=== PATIENT | female | born 1975 | race American Indian/Alaskan Native ===

== ENCOUNTER 2018-06-02 06:09 | Inpatient (IN) | payer MEDICAID ==
[2018-05-29 11:02] LABS: Basophils % (Auto) 0.7 % (0.0-1.8); Eosinophils # (Auto) 0.2 K/mm3 (0.0-0.4); Eosinophils % (Auto) 3.8 % (0.0-4.3); Hematocrit 36.8 % (30.3-42.9); Hemoglobin 12.3 gm/dl (10.1-14.3); Lymphocytes # (Auto) 2.1 K/mm3 (1.2-5.4); Lymphocytes % (Auto) 34.3 % (13.4-35.0); Mean Corpuscular HGB Conc 33 % (30-34); Mean Corpuscular Volume 86 fl (79-97); Monocytes # (Auto) 0.4 K/mm3 (0.0-0.8); Monocytes % (Auto) 5.7 % (0.0-7.3); Platelet Count 277 K/mm3 (140-440); Red Blood Count 4.27 M/mm3 (3.65-5.03); Red Cell Distribution Width 14.6 % (13.2-15.2)
[~2018-06-02 06:09] MED LIST: LACTATED RINGERS 1,000 ML IV SCH; NEURONTIN PO NR; SUBLIMAZE IV PRN; VERSED IV NR
[2018-06-02] MEDS ORDERED: NACL BACTERIOSTATIC INFILTRATI ONE (06:20)
--- NOTE | 2018-06-02 06:33 | Anesthesia Day of Surgery ---
Anesthesia Day of Surgery - Day of Surgery Patient Examined: Yes Patient H&P Reviewed: Yes Patient is NPO: Yes
--- NOTE | 2018-06-02 06:33 | Anesthesia Consultation ---
Anesthesia Consult and Med Hx Date of service: 06/02/18 - Airway Anesthetic Teeth Evaluation: Good ROM Head & Neck: Adequate Mental/Hyoid Distance: Adequate Mallampati Class: Class I Intubation Access Assessment: Good - Pulmonary Exam CTA: Yes - Cardiac Exam Cardiac Exam: RRR - Pre-Operative Health Status ASA Pre-Surgery Classification: ASA1 Proposed Anesthetic Plan: General Nerve Block: TAP - Pulmonary Hx Respiratory Symptoms: No - Central Nervous System Hx Psychiatric Problems: No - Gastrointestinal Hx Gastroesophageal Reflux Disease: No - Endocrine Hx Insulin Dependent Diabetes: No Hx Non-Insulin Dependent Diabetes: No Hx Thyroid Disease: No - Other Systems Hx Alcohol Use: Yes (occas) Hx Cancer: No - Additional Comments Anesthesia Medical History Comments: Left upper lateral incisor is an implant
[2018-06-02] MEDS ORDERED: ACD-A 500 ML IV ONE (07:13)
[2018-06-02] MEDS ORDERED: NACL 0.9% 100 ML ONE (07:13)
[2018-06-02] MEDS ORDERED: DILAUDID ONE (07:13)
[2018-06-02] MEDS ORDERED: DIPRIVAN 10 MG/ML IV ONE (07:13)
[2018-06-02] MEDS ORDERED: METHYLENE BLUE ONE (07:13)
[2018-06-02] MEDS ORDERED: XYLOCAINE MPF 2% ONE (07:13)
[2018-06-02] MEDS ORDERED: ZEMURON IV ONE (07:13)
[2018-06-02] MEDS ORDERED: Vasostrict ONE (07:13)
--- NOTE | 2018-06-02 07:28 | History and Physical Report ---
History of Present Illness Date of examination: 06/02/18 Date of admission: 06/02/18 06:09 Chief complaint: Symptomatic uterine fibroids History of present illness: Pt is a 42yo BF LMP 05/23/18 presents for surgical evaluation and treatment of uterine fibroids. Pelvic u/s showed an enlarged uterus with a large pedunculated fibroid. She desires future fertility, and is therefore scheduled for an Abdominal Myomectomy. Past History Past Medical History: no pertinent history Past Surgical History: other (Laparoscopy; Tubal ligation followed by tubal reanastomosis) [employer] History: fibroids Family/Genetic History: none Social history: no significant social history, single Medications and Allergies Allergies Allergy/AdvReac Type Severity Reaction Status Date / Time codeine Allergy Itching Verified 05/28/18 15:33 Home Medications Medication Instructions Recorded Confirmed Last Taken Type Doxylamine Succinate [Unisom] 25 mg PO HS PRN 02/11/18 05/28/18 02/16/18 History HYDROcodone/APAP 5-325 [Ophiem 1 each PO Q6HR PRN #20 tablet 02/17/18 05/28/18 Unknown Rx 5/325] Active Meds: Active Medications Celecoxib (Celebrex) 200 mg PO PREOP NR Stop: 06/02/18 23:59 Last Admin: 06/02/18 06:40 Dose: 200 mg Documented by: Fentanyl (Sublimaze) 100 mcg IV ONCE PRN PRN Reason: procedural sedation Stop: 06/02/18 23:59 Gabapentin (Neurontin) 300 mg PO PREOP NR Stop: 06/02/18 23:59 Last Admin: 06/02/18 06:40 Dose: 300 mg Documented by: Lactated Ringer's (Lactated Ringers) 1,000 mls @ 100 mls/hr IV DIRECT VISHAL Last Admin: 06/02/18 06:50 Dose: 100 mls/hr Documented by: Midazolam HCl (Versed) 2 mg IV PREOP NR Stop: 06/02/18 23:59 Review of Systems All systems: negative - Vital Signs Vital signs: Vital Signs Temp Pulse Resp BP Pulse Ox 98.2 F 78 20 108/76 100 05/29/18 10:40 05/29/18 10:40 05/29/18 10:40 05/29/18 10:40 05/29/18 10:40 Temp Pulse Resp BP Pulse Ox 98 F 75 16 120/85 99 06/02/18 06:20 06/02/18 06:20 06/02/18 06:20 06/02/18 06:20 06/02/18 06:20 - Physical Exam Breasts: Positive: deferred Cardiovascular: Regular rate Lungs: Positive: Clear to auscultation Abdomen: Positive: normal appearance Genitourinary (Female): Positive: normal external genitalia Vagina: Positive: normal moisture Uterus: Positive: enlarged Extremities: Positive: normal Results Result Diagrams: 05/29/18 10:50 All other labs normal. Ultrasound: report reviewed Assessment and Plan - Patient Problems (1) Pedunculated leiomyoma of uterus Onset Date: 06/02/18 Current Visit: No Status: Chronic Qualifiers: Uterine leiomyoma location: intramural and subserous Qualified Code(s): D25.1 - Intramural leiomyoma of uterus; D25.2 - Subserosal leiomyoma of uterus Plan to address problem: A: Symptomatic uterine fibroids Endometriosis P: Admit for an Abdominal myomectomy (2) Endometriosis determined by laparoscopy Onset Date: ~02/17/18 Current Visit: No Status: Resolved
[2018-06-02] MEDS ORDERED: ANCEF/STERILE WATER 2 GM/20 ML 2 GM/20 ML SYRINGE IV NR (08:00)
[2018-06-02] MEDS ORDERED: Vasostrict IM ONE (08:52)
[2018-06-02] MEDS ORDERED: ACD-A IV ONE (08:52)
[2018-06-02] MEDS ORDERED: NACL 0.9% IR ONE (08:52)
[2018-06-02] MEDS ORDERED: ROBINUL ONE (09:08)
[2018-06-02] MEDS ORDERED: BLOXIVERZ ONE (09:08)
[2018-06-02] MEDS ORDERED: TORADOL ONE (09:08)
[2018-06-02] MEDS ORDERED: ZOFRAN ONE (09:08)
[2018-06-02] MEDS ORDERED: MILK OF MAGNESIA PO PRN (09:29)
[2018-06-02] MEDS ORDERED: BENADRYL IV PRN (09:29)
[2018-06-02] MEDS ORDERED: TYLENOL PO PRN (09:29)
[2018-06-02] MEDS: DILAUDID IV PRN ×4 (09:50→10:35)
[2018-06-02] MEDS ORDERED: MORPHINE PCA 30MG/30ML IV SCH (10:00)
[2018-06-02] MEDS ORDERED: NACL 0.9% 1000 ML 1,000 ML IV SCH (10:00)
--- NOTE | 2018-06-02 10:16 | Operative Report ---
Operative Report Operative Report: Date of procedure: 06/02/2018 Pre-operative diagnosis: Symptomatic uterine fibroids Post-operative diagnosis: Same Procedure name(s): Abdominal myomectomy Surgeon: Bran Carrero MD Radio Broadcaster: None Anesthesia: Gen. endotracheal intubation by Dr. Hess EBL: 300 mls with one units returned by Cell Saver Findings: A 14 week size multiple myomatous uterus with normal tubes and ovaries bilaterally Procedure: After the patient was correctly identified, she was prepped and draped in the usual sterile fashion and placed in the dorsolithotomy position. First the skin knife was used to make a transverse skin incision. The incision was extended down to the fascia which is nicked in midline and extended l aterally using Bovie cautery. The rectus muscles were dissected off the rectus fascia both superiorly and inferiorly, the rectus bellies in midline and the peritoneum was entered under direct visualization. Exploration of the pelvic organs found the uterus to be enlarged with multiple fibroids. There was a large pedunculated fibroid in the right lower anterior portion of the uterus, with several smaller scattered fibroids. First Pitressin solution was used to infiltrate the base of the myomas, and each myoma was removed using both sharp and blunt dissection. A total of 10 fibroids removed in this similar fashion. After all the fibroids were removed, the myometrial defect was re-approximated using 2-0 Monocryl suture in a [id number] configuration, followed by re-approximation of the serosal layer using 2-0 Monocryl suture in a running interlocking fashion. After all the fibroids removed the procedure was considered complete. Copious amounts of irrigation was performed, and good hemostasis was assured. The Tisseel sealant was sprayed across the serosal layer. The uterus was then returned to his normal anatomical position, and the peritoneum was re-approximated using 0 Vicryl suture in a running interlocking fashion. The fascia was then re-approximated using 0 Vicryl suture in a running interlocking fashion. The subcutaneous layer was made hemostatic using Bovie cautery and the skin edges re-approximated using 0 Monocryl suture in a sub- cuticular fashion. The patient tolerated the procedure well and was transferred to recovery room in stable condition.
[2018-06-02] MEDS ORDERED: NARCAN 0.4 MG/1 ML IV PRN (10:30)
[2018-06-02] MEDS ORDERED: PERCOCET 5/325 PO PRN (10:30)
--- NOTE | 2018-06-02 10:54 | Post Anesthesia Evaluation ---
- Post Anesthesia Evaluation Patient Participated: Yes Airway Patent: Yes Stable Respiratory Function: Yes Nausea/Vomiting: No Temp > 96.8F: Yes Pain Manageable: Yes Adequeate Hydration: Yes Anesthesia Complications: No
[2018-06-02] MEDS: TORADOL IV SCH ×2 (15:45→22:18)
[2018-06-02] MEDS: D5LR 1,000 ML IV SCH (15:46)
[2018-06-02] MEDS: ZOFRAN IV PRN (16:14)
[2018-06-02] MEDS: ANCEF/NS 1 GM/50 ML 1 GM/50 ML BAG IV SCH (16:14)
[2018-06-02] MEDS: COLACE PO SCH (22:17)
[2018-06-02] MEDS: AMBIEN PO PRN (22:17)
[2018-06-03] MEDS: ANCEF/NS 1 GM/50 ML 1 GM/50 ML BAG IV SCH (00:31)
[2018-06-03] MEDS: ZOFRAN IV PRN ×3 (00:31→22:44)
[2018-06-03] MEDS: D5LR 1,000 ML IV SCH (00:36)
[2018-06-03 04:36] LABS: Hematocrit 30.5 % (30.3-42.9)
[2018-06-03] MEDS: TORADOL IV SCH ×2 (06:38→11:00)
--- NOTE | 2018-06-03 08:40 | Progress Note ---
Assessment and Plan - Patient Problems (1) Pedunculated leiomyoma of uterus Onset Date: 06/02/18 Current Visit: No Status: Resolved Qualifiers: Uterine leiomyoma location: intramural and subserous Qualified Code(s): D25.1 - Intramural leiomyoma of uterus; D25.2 - Subserosal leiomyoma of uterus (2) Status post myomectomy Onset Date: 06/03/18 Current Visit: Yes Status: Resolved Plan to address problem: A: S/P Abdominal myomectomy - POD #1 Doing well Asymptomatic anemia - stable P: Continue RPOC Anticipate discharge in 24-48hrs Subjective - Subjective Date of service: 06/03/18 Principal diagnosis: S/P Abdominal myomectomy - POD #1 Interval history: Pt is s/p an Abdominal Myomectomy, and feeling well. She is tolerating a liquid diet without nausea or vomiting, ambulating and voiding without difficulty. Patient reports: appetite normal, voiding normally, pain well controlled, ambulating normally, no dizzy ambulation, no flatus, no nauseated Objective - Vital Signs Latest vital signs: Vital Signs Temp Pulse Resp BP BP Pulse Ox 06/03/18 07:11 97.3 F L 65 18 113/64 06/03/18 04:00 98.6 F 74 20 110/58 98 06/03/18 00:00 98.0 F 75 18 120/69 97 06/02/18 20:00 98.6 F 68 20 125/72 99 06/02/18 19:16 18 06/02/18 16:21 98.0 F 63 16 113/66 97 06/02/18 15:48 20 06/02/18 15:45 20 06/02/18 11:20 98.5 F 72 16 124/75 97 06/02/18 11:15 98.5 F 72 16 124/75 97 06/02/18 11:05 17 06/02/18 11:00 69 14 119/72 99 06/02/18 10:45 79 18 123/53 99 06/02/18 10:35 16 06/02/18 10:30 72 9 L 145/73 100 06/02/18 10:18 22 06/02/18 10:15 62 20 149/74 100 06/02/18 10:00 63 12 154/78 100 06/02/18 09:50 61 13 158/92 100 06/02/18 09:45 64 14 155/76 100 06/02/18 09:40 97.6 F 69 12 156/86 100 Intake and Output 06/02/18 06/03/18 06/03/18 22:59 06:59 14:59 Intake Total 530 1240 480 Output Total 150 1300 Balance 380 -60 480 Intake: IV 50 1000 ANCEF/NS 1 GM/50 ML 1 gm 50 In 50 ml @ 100 mls/hr IV Q8H VISHAL Rx#:[id number] 1,000 ml @ 125 mls/ 1000 hr IV DIRECT VISHAL Rx#: [id number] Oral 480 240 480 Output: Urine 150 1300 Indwelling Catheter 150 1300 Other: Total, Intake Amount 480 240 480 Total, Output Amount 150 1000 - Exam Cardiovascular: Present: Regular rate Lungs: Present: Clear to auscultation Abdomen: Present: normal appearance, soft Uterus: Present: normal Incision: Present: normal, dry, intact, dressed - Labs Labs: Abnormal lab results 06/03/18 Range/Units 04:20 Hgb 10.0 L (10.1-14.3) gm/dl Laboratory Tests 05/29/18 05/29/18 06/02/18 10:50 10:50 06:50 WBC 6.3 RBC 4.27 Hgb 12.3 Hct 36.8 MCV 86 MCH 29 MCHC 33 RDW 14.6 Plt Count 277 Lymph % (Auto) 34.3 Lea % (Auto) 5.7 Eos % (Auto) 3.8 Baso % (Auto) 0.7 Lymph # 2.1 Lea # 0.4 Eos # 0.2 Baso # 0.0 Seg Neutrophils % 55.5 Seg Neutrophils # 3.5 HCG, Qual Negative Blood Type O POSITIVE Antibody Screen Negative 06/03/18 04:20 WBC RBC Hgb 10.0 L Hct 30.5 MCV MCH MCHC RDW Plt Count Lymph % (Auto) Lea % (Auto) Eos % (Auto) Baso % (Auto) Lymph # Lea # Eos # Baso # Seg Neutrophils % Seg Neutrophils # HCG, Qual Blood Type Antibody Screen
[2018-06-03] MEDS: COLACE PO SCH ×2 (09:39→22:44)
[2018-06-03] MEDS: NORCO 5/325 PO PRN (16:39)
[2018-06-03] MEDS: AMBIEN PO PRN (22:48)
[2018-06-04] MEDS: TORADOL IV SCH (06:44)
[2018-06-04 08:56] VITALS: BP 122/72
--- NOTE | 2018-06-04 09:29 | Progress Note ---
Assessment and Plan - Patient Problems (1) Pedunculated leiomyoma of uterus Onset Date: 06/02/18 Current Visit: No Status: Resolved Qualifiers: Uterine leiomyoma location: intramural and subserous Qualified Code(s): D25.1 - Intramural leiomyoma of uterus; D25.2 - Subserosal leiomyoma of uterus (2) Endometriosis determined by laparoscopy Onset Date: ~02/17/18 Current Visit: No Status: Resolved (3) Status post myomectomy Onset Date: 06/03/18 Current Visit: Yes Status: Resolved Plan to address problem: A: S/P Abdominal myomectomy - POD #2 Doing well Asymptomatic anemia - stable P: May go home today. Subjective - Subjective Date of service: 06/04/18 Principal diagnosis: S/P Abdominal myomectomy - POD #2 Interval history: Pt is feeling well without complaints. She is tolerating a reg diet without nausea or vomiting, ambulating and voiding without difficulty. Patient reports: appetite normal, voiding normally, pain well controlled, flatus, ambulating normally, no dizzy ambulation, no nauseated Objective - Vital Signs Latest vital signs: Vital Signs Temp Pulse Resp BP Pulse Ox 06/04/18 08:24 98.5 F 82 18 122/72 06/04/18 05:55 98.7 F 78 18 116/66 95 06/04/18 01:43 98.6 F 84 16 108/67 99 06/03/18 21:55 98.8 F 90 16 119/68 97 06/03/18 16:17 97.2 F L 70 18 115/70 06/03/18 12:23 98.2 F 76 18 124/64 Intake and Output 06/03/18 06/04/18 06/04/18 22:59 06:59 14:59 Intake Total 360 240 480 Output Total 300 Balance 60 240 480 Intake: Oral 360 480 Intake, Free Water 240 Output: Urine 300 Void 300 Other: Total, Intake Amount 360 480 Total, Output Amount 300 # Voids Void 1 1 - Exam Abdomen: Present: normal appearance, soft Uterus: Present: normal Incision: Present: normal, dry, intact, dressed
[2018-06-04] MEDS: NORCO 5/325 PO PRN (09:35)
[2018-06-04] MEDS: COLACE PO SCH (09:37)
--- NOTE | 2018-06-04 09:49 | Discharge Summary ---
Providers - Providers Date of Admission: 06/02/18 06:09 Date of discharge: 06/04/18 Attending physician: SATHISH BLANK Primary care physician: REGAN ELLIS Hospitalization Reason for admission: other (Symptomatic uterine fibroids) Procedure: other (Abdominal myomectomy) Episiotomy: none Laceration: none Incision: normal, dry, intact Other procedures: none complications: none Discharge diagnosis: other (s/p Abdominal myomectomy) Hospital course: Pt is a 42yo BF LMP 05/23/18 who presented for surgical evaluation and treatment of uterine fibroids. Pelvic u/s showed an enlarged uterus with a large pedunculated fibroid. She desired future fertility, and is therefore underwent an uncomplicated Abdominal Myomectomy. By POD #2 she was tolerating a reg diet without nausea or vomiting, ambulating and voiding without difficulty. She was therefore discharged to home on POD #2 in stable condition. Condition at discharge: Good Disposition: DC-01 TO HOME OR SELFCARE - Discharge Diagnoses (1) Pedunculated leiomyoma of uterus Status: Resolved Qualifiers: Uterine leiomyoma location: intramural and subserous Qualified Code(s): D25.1 - Intramural leiomyoma of uterus; D25.2 - Subserosal leiomyoma of uterus (2) Endometriosis determined by laparoscopy Status: Resolved (3) Status post myomectomy Status: Resolved Plan - Discharge Medications Prescriptions: Ferrous Sulfate [Feosol 325 MG tab] 325 mg PO BID #60 tablet HYDROcodone/APAP 5-325 [[place] 5-325 mg TAB] 1 each PO Q6HR PRN #30 tablet PRN Reason: Pain, Moderate (4-6) Ibuprofen [Motrin] 800 mg PO Q8HR PRN #30 tablet PRN Reason: Pain, Mild (1-3) - Provider Discharge Summary Activity: routine, no sex for 6 weeks, no heavy lifting 4 weeks, no strenuous exercise Diet: routine Instructions: routine Additional instructions: [] Smoking cessation referral if applicable(refer to patient education folder for contact #) [] Refer to [facility] Booklet Call your doctor immediately for: * Fever > 100.5 * Heavy vaginal bleeding ( >1 pad per hour) * Severe persistent headache * Shortness of breath * Reddened, hot, painful area to leg or breast * Drainage or odor from incision. * Keep incision clean and dry at all times and follow doctor's instructions regarding bathing/showering - Follow up plan Follow up: REGAN ELLIS MD [Primary Care Provider] - 7 Days SATHISH BLANK MD [Staff Physician] - 14 Days
== END 2018-06-04 12:00 | disposition home or self-care (01) | DRG 742 ==
LOC: 3A 06:09 → OB 09:56
PROVIDERS: ADMIT Obstetrics & Gynecology; ATTEND Obstetrics & Gynecology
PROC: 0UB90ZZ Excision of Uterus, Open Approach (ICD-10-PCS; principal; 2018-06-02)
DX: D25.1 Intramural leiomyoma of uterus (principal); R71.0 Precipitous drop in hematocrit; N80.9 Endometriosis, unspecified; D25.2 Subserosal leiomyoma of uterus; Z72.89 Other problems related to lifestyle; Z98.51 Tubal ligation status; Z88.5 Allergy status to narcotic agent; Z79.899 Other long term (current) drug therapy
CPT/HCPCS: 36415; 84703; 85014; 85018; 85025; 86850; 86900; 86901; 88305; G0378; C1765; C9250; J0690; J1170; J1885; J2250; J2270; J2405; J2704; J2710; J7120; J7121; Q9968